=== PATIENT | female | born 1985 | race Hispanic/Latino ===

== ENCOUNTER 2025-03-19 19:19 | Emergency (ER) | payer MEDICAID | END 2025-03-19 21:15 | disposition home or self-care (01) | LOC: MW.ED 19:19 | DX: J32.9 Chronic sinusitis, unspecified (principal); B34.9 Viral infection, unspecified; Z91.041 Radiographic dye allergy status; Z88.8 Allergy status to other drugs, medicaments and biological substances; Z86.16 Personal history of COVID-19 | CPT/HCPCS: 87426-QW; 99283 ==

== ENCOUNTER 2025-05-31 18:35 | Emergency (ER) | payer MEDICAID ==
[2025-05-31 19:46] LABS: GLUCOSE,URINE NEGATIVE (NEGATIVE); OCCULT BLOOD,URINE SMALL (NEGATIVE)
[2025-05-31 19:55] LABS: APPEARANCE,URINE HAZY; EPITHELIAL CELLS,URINE FEW (NONE-FEW)
== END 2025-05-31 20:16 | disposition home or self-care (01) ==
LOC: MW.ED 18:35
DX: T83.091A Other mechanical complication of indwelling urethral catheter, initial encounter (principal); N39.0 Urinary tract infection, site not specified; Y84.6 Urinary catheterization as the cause of abnormal reaction of the patient, or of later complication, without mention of misadventure at the time of the procedure; Z75.3 Unavailability and inaccessibility of health-care facilities; Z91.041 Radiographic dye allergy status; Z86.16 Personal history of COVID-19
CPT/HCPCS: 51702; 81001; 87086; 99283; A9270; 87088; 87186

== ENCOUNTER 2025-08-03 19:38 | Emergency (ER) | payer MEDICAID ==
[2025-08-03] MEDS: Amoxicillin/Clavulanate K 875-125 MG Tab PO ONE (21:08)
== END 2025-08-03 21:11 | disposition home or self-care (01) ==
LOC: MW.ED 19:38
DX: Z46.6 Encounter for fitting and adjustment of urinary device (principal); Z88.8 Allergy status to other drugs, medicaments and biological substances; Z79.899 Other long term (current) drug therapy
CPT/HCPCS: 51702; 99283; A9270

== ENCOUNTER 2025-09-17 21:04 | Emergency (ER) | payer MEDICAID | END 2025-09-17 22:01 | disposition home or self-care (01) | LOC: MW.ED 21:04 | DX: T83.021A Displacement of indwelling urethral catheter, initial encounter (principal); Z91.041 Radiographic dye allergy status; Z88.8 Allergy status to other drugs, medicaments and biological substances; Z79.899 Other long term (current) drug therapy; Y84.6 Urinary catheterization as the cause of abnormal reaction of the patient, or of later complication, without mention of misadventure at the time of the procedure | CPT/HCPCS: 51702; 99282; 99283 ==

== ENCOUNTER 2025-10-06 21:26 | Emergency (ER) | payer MEDICAID | END 2025-10-06 22:20 | disposition home or self-care (01) | LOC: MW.ED 21:26 | DX: Z46.6 Encounter for fitting and adjustment of urinary device (principal); Z91.041 Radiographic dye allergy status; Z88.8 Allergy status to other drugs, medicaments and biological substances | CPT/HCPCS: 51702; 99282; 99283 ==

== ENCOUNTER 2025-10-29 10:42 | Emergency (ER) | payer MEDICAID ==
[2025-10-29 14:22] LABS: APPEARANCE,URINE SLT CLOUDY; GLUCOSE,URINE NEGATIVE (NEGATIVE); OCCULT BLOOD,URINE SMALL (NEGATIVE)
[2025-10-29 14:35] LABS: EPITHELIAL CELLS,URINE FEW (NONE-FEW)
[2025-10-29 15:01] LABS: BASOPHILS ABSOLUTE AUTO 0.03 K/uL (0.00-0.20); BASOPHILS PERCENT AUTO 0.5 % (0.0-1.0); EOSINOPHILS ABSOLUTE AUTO 0.15 K/uL (0.00-0.45); EOSINOPHILS PERCENT AUTO 2.4 % (0.0-6.0); IMMATURE GRAN ABSOLUTE AUTO 0.01 K/uL (0.00-0.05); IMMATURE GRAN PERCENT AUTO 0.2 % (0.0-0.4); LYMPHOCYTES ABSOLUTE AUTO 2.00 K/uL (1.00-4.80); LYMPHOCYTES PERCENT AUTO 31.6 % (24.0-44.0); MEAN PLATELET VOLUME 9.6 fL (9.4-12.3); MONOCYTES ABSOLUTE AUTO 0.35 K/uL (0.00-0.80); MONOCYTES PERCENT AUTO 5.5 % (0.0-8.0); NEUTROPHILS ABSOLUTE AUTO 3.79 K/uL (1.80-7.70); NEUTROPHILS PERCENT AUTO 59.8 % (41.0-71.0); NRBC ABSOLUTE 0.00 K/uL (0.00-0.02); NRBC PERCENT 0.0 /100WBC (0.0-0.2); PLATELET COUNT,PLT 386 K/uL (150-400); RED BLOOD CELL COUNT 4.14 M/uL (4.10-5.30); WHITE BLOOD CELL COUNT,WBC 6.33 K/uL (3.9-11.3)
[2025-10-29 15:30] LABS: A/G RATIO 1.0 (0.9-1.6); ALANINE AMINOTRANSFERASE,ALT 23.0 IU/L (14-63); ASPARTATE AMNIOTRANSFERASE,AST 21.0 IU/L (15-37); BILIRUBIN TOTAL 0.3 mg/dL (0.2-1.0); BLOOD UREA NITROGEN,BUN 11.0 mg/dL (7.0-18.0); CARBON DIOXIDE,CO2 23.3 mmol/L (21.0-32.0); CHLORIDE,CL 106.0 mmol/L (98-107); CREATININE 0.5 mg/dL (0.6-1.0); EST CRCL DRUG DOSING (CG) 121.25 mL/min; GLUCOSE RANDOM 109.0 mg/dL (74-106); POTASSIUM,K 3.5 mmol/L (3.5-5.1); PROTEIN TOTAL,TP 7.0 g/dL (6.4-8.2); SODIUM,NA 140.0 mmol/L (136-145)
[2025-10-29 15:32] LABS: ESTIMATED GFR 120.0 mL/min (>60)
[2025-10-29] MEDS: cefTRIAXone 1 GM in Water For Injection, Sterile 10 ML IVPUSH ONE (15:43)
== END 2025-10-29 16:34 | disposition home or self-care (01) ==
LOC: MW.ED 10:42
DX: N39.0 Urinary tract infection, site not specified (principal); Z88.8 Allergy status to other drugs, medicaments and biological substances; Z91.041 Radiographic dye allergy status; Z75.3 Unavailability and inaccessibility of health-care facilities; Z86.73 Personal history of transient ischemic attack (TIA), and cerebral infarction without residual deficits
CPT/HCPCS: 36415; 51702; 80053; 81001; 85025; 87086; 96374; 99283; J0696; J7030